=== PATIENT | male | born 1950 | race Caucasian/White ===

== ENCOUNTER 2020-10-28 09:44 | Inpatient (IN) | payer OTHER ==
[~2020-10-28] VITALS: Ht 180.3 cm; Wt 90.3 kg
[2020-10-28 09:46] VITALS: BP 117/90
[2020-10-28] MEDS ORDERED: LISINOPRIL-HCT1 EAC2 PO (09:51)
[2020-10-28] MEDS ORDERED: ATORVASTATIN CA80 MG PO (09:51)
[2020-10-28] MEDS ORDERED: ELIQUIS5 MG PO (09:51)
[2020-10-28 10:12] LABS: ABSOLUTE BASOPHILS 0.1 thou/uL (0.0-0.2); ABSOLUTE EOSINOPHILS 0.1 thou/uL (0.0-0.7); ABSOLUTE MONOCYTES 0.7 thou/uL (0.0-1.2); ABSOLUTE NEUTROPHILS 5.4 thou/uL (1.6-8.1); EOSINOPHILS 1.7 %; HEMATOCRIT 46.2 % (42.0-52.0); HEMOGLOBIN 15.9 gm/dL (14.0-18.0); LYMPHOCYTES 23.9 %; MCH 32.6 pg (26.0-34.0); MCHC 34.4 g/dL (28.0-37.0); MCV 94.9 fL (80.0-100.0); MONOCYTES 8.1 %; MPV 10.4 fl. (7.2-11.1); NUCLEATED RBCS 0 /100WBC; PLATELET COUNT* 193 thou/uL (150-400); POLYS 65.3 %; RBC 4.87 mil/uL (4.50-6.00); RDW-CV 13.2 % (10.5-14.5); WBC 8.3 thou/uL (4.0-11.0)
[2020-10-28 10:25] LABS: CALCIUM 9.1 mg/dL (8.5-10.1); CREATININE 1.7 mg/dL (0.6-1.3)
[2020-10-28 10:35] LABS: ALBUMIN 3.8 g/dL (3.4-5.0); DIRECT BILIRUBIN 0.2 mg/dL (<0.1-0.3); MAGNESIUM 2.1 mg/dL (1.8-2.4); TOTAL BILIRUBIN 0.7 mg/dL (<0.1-1.0); TOTAL PROTEIN 7.1 g/dL (6.4-8.2)
[2020-10-28 10:52] LABS: APTT 30.3 Seconds (25.0-31.3); INR 1.1; PROTIME 11.4 Seconds (9.20-11.50)
[2020-10-28 12:23] LABS: URINE BILIRUBIN NEGATIVE (Negative); URINE BLOOD NEGATIVE (Negative); URINE CLARITY CLEAR; URINE COLOR YELLOW; URINE GLUCOSE-RANDOM NEGATIVE (Negative); URINE KETONES NEGATIVE (Negative); URINE LEUKOCYTES NEGATIVE (Negative); URINE NITRITE NEGATIVE (Negative); URINE PROTEIN NEGATIVE (Negative); URINE UROBILINOGEN 0.2 E.U./dl (0.2-1.0)
[2020-10-28 12:40] LABS: AMP/METHAMP Negative (Negative); BARBITURATES Negative (Negative); BENZODIAZEPINES Negative (Negative); COCAINE Negative (Negative); METHADONE Negative (Negative); OPIATES Negative (Negative); PCP Negative (Negative); THC Negative (Negative)
--- NOTE | 2020-10-28 14:20 | EKG ---
[place] [address] ELECTROCARDIOGRAM REPORT Name: JADE ACOSTA Room: [place] [address] ADM IN [facility]#: [id number] Admission: 10/28/20 Attend Phys: Shiva Ovalle Discharge: Date of : 52 Date of Service: 10/28/20 0947 Report #: [id number] THIS REPORT FOR: //name// 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 10/28/20 1420 0947 0947 Cameron Pedersen MD, [facility] /EPI
--- NOTE | 2020-10-28 14:21 | EKG ---
[place] [address] ELECTROCARDIOGRAM REPORT Name: JADE ACOSTA Room: [place] [address] ADM IN 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 : 1950 Requested By: To Carrera Order Number: [id number] MD: Cameron Pedersen Measurements Intervals [place] Rate: 149 P: ME: QRS: 13 QRSD: 76 T: 14 QT: 287 QTc: 452 Interpretive Statements Atrial fibrillation with rapid V-rate Low voltage, extremity and precordial leads Borderline T abnormalities, inferior leads Compared to ECG 10/28/2020 09:47:19 T-wave abnormality now present Supraventricular tachycardia no longer present Electronically Signed On 10-28-2020 14:20:47 MEDICAL SURGICAL TECH by Cameron Pedersen [email or web address] <ELECTRONICALLY SIGNED> By: Cameron Pedersen MD, [facility] 10/28/20 1420 1020 1020 Cameron Pedersen MD, [facility] /EPI
--- NOTE | 2020-10-28 15:20 | EKG ---
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1950 Requested By: To Carrera Order Number: [id number] Gissel MD: Cameron Pedersen Measurements Intervals [place] Rate: 80 P: 122 WV: 170 QRS: 3 QRSD: 80 T: 22 QT: 371 QTc: 428 Interpretive Statements Sinus rhythm Low voltage, extremity and precordial leads Compared to ECG 10/28/2020 10:20:54 Atrial fibrillation no longer present T-wave abnormality no longer present Electronically Signed On 10-28-2020 15:20:18 LEAD JAVA PROGRAMMER by Cameron Pedersen [email or web address] <ELECTRONICALLY SIGNED> By: Cameron Pedersen MD, [facility] 10/28/20 1520 1052 1052 Cameron Pedersen MD, [facility] /EPI
--- NOTE | 2020-10-28 15:26 | CON ---
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 He has a history of prior supraventricular tachyarrhythmias and is status post multiple prior ablations all done in [place]. He noted a sensation of rapid heartbeat yesterday evening and sought assistance in the [facility] ER today. He was noted to demonstrate SVT with a rapid rate. He initially received adenosine and subsequently Cardizem with reversion to sinus rhythm. He then developed atrial fibrillation and received additional diltiazem IV with return to sinus mechanism. He has been on a number of medications and Tikosyn was considered, but was never initiated within hospital monitoring. We have no history of known structural heart disease. He denies known coronary artery disease, hypertension, diabetes or hyperlipidemia. There is no history of antecedent myocardial infarction. He is taking no cardiac medications at present. PHYSICAL EXAMINATION: GENERAL: Demonstrates a middle-aged male in no acute distress. VITAL SIGNS: Blood pressure 130/70, pulse rate 74, respirations 18 per minute. NECK: Jugular venous pressure is normal. CHEST: Clear. CARDIAC: Reveals normal first and second heart sounds without murmurs or gallops. ABDOMEN: Soft. EXTREMITIES: Without edema. LABORATORY DATA: EKGs were reviewed. Initial tracing revealing SVT. Subsequent tracing revealed atrial fibrillation with a tachycardic response. Third tracing demonstrating sinus rhythm at a normal [place] [id number] CONSULTATION Name: JADE ACOTSA Room: [place] [address] ADM IN [facility]#: [id number] Admission: 10/28/20 Attend Phys: Juwan Whaley Discharge: Date of : 52 Report #: [id number]. IMPRESSION: 1. Recurrent supraventricular arrhythmias including supraventricular tachyarrhythmia and atrial fibrillation. 2. Status post prior ablation. RECOMMENDATIONS: 1. 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 The IV Cardizem seem to achieve satisfactory responses and I would initiate the oral form of diltiazem extended release 240 mg daily. Echocardiogram has been requested or ascertained lack of any significant structural heart disease. After review, I think it is acceptable to discharge the patient with continuing a long-acting diltiazem in followup when he returns home to [place], [place]. Critical care time is 35 minutes from 1300 to 1335 on 10/28/2020. <ELECTRONICALLY SIGNED> By: Cameron Pedersen MD, FACC 10/28/20 1526 1336 1425Cameron Pedersen MD, FACC /nt
[2020-10-28 15:41] VITALS: BP 126/72
--- NOTE | 2020-10-28 15:57 | 2DMMODE ---
[place] [address] 2 D/M-MODE ECHOCARDIOGRAM Name: JADE ACOSTA Room: [place] [address] ADM IN [place].#: [id number] Admission: 10/28/20 Attend Phys: Shiva Ovalle Discharge: Date of : 52 Date of Service: 10/28/20 1557 Report #: [id number] THIS REPORT FOR: cc: [facility] - Clinic physician unknown [facility] - Clinic physician unknown Cameron Pedersen MD [facility] ~ APPROVED REPORT Study performed: 10/28/2020 14:43:12 EXAM: Comprehensive 2D, Doppler, and color-flow Echocardiogram Patient Location: In-Patient Room #: er Status: routine BSA: 2.15 HR: 107 bpm BP: 113/84 mmHg Rhythm: Atrial Fibrillation Other Information Study Quality: Good Indications Abnormal ECG Atrial Fibrillation 2D Dimensions IVSd: 12.42 (7-11mm) LVOT Diam: 22.38 (18-24mm) LVDd: 43.80 mm PWd: 10.74 (7-11mm) Ascending Ao: 33.88 (22-36mm) LVDs: 23.96 (25-40mm) Aortic Root: 36.13 mm Volumes Left Atrial Volume (Systole) LA ESV Index: 24.50 mL/m2 Aortic Valve AoV Peak Franko.: 1.37 m/s AO Peak Gr.: 7.50 mmHg LVOT Max P.95 mmHg AO Mean Gr.: 4.17 mmHg LVOT Mean P.99 mmHg LVOT Max V: 0.70 m/s AO V2 VTI: 20.43 cm LVOT Mean V: 0.46 m/s VANESSA (VTI): 2.25 cm2 LVOT V1 VTI: 11.71 [place] [address] 2 D/M-MODE ECHOCARDIOGRAM Name: JADE ACOSTA Room: [address] IN .R.#: [id number] Admission: 10/28/20 Attend Phys: Shiva Ovalle Discharge: Date of : 52 Date of Service: 10/28/20 1557 Report #: [id number] TDI Medial E' Franko.: 0.11 m/s Lateral E' Franko.: 0.11 m/s Pulmonary Valve PV Peak Franko.: 0.94 m/s PV Peak Gr.: 3.57 mmHg Tricuspid Valve RAP Estimate: 5.00 mmHg TR Peak Gr.: 27.11 mmHg RVSP: 32.00 mmHg PA Pressure: 32.00 mmHg Left Ventricle The left ventricle is normal size. There is normal LV segmental wall motion. There is normal left ventricular wall thickness. Left ventricular systolic function is normal. The left ventricular ejection fraction is within the normal range. LVEF is 55-60%. This study is not technically sufficient to allow evaluation of the LV diastolic function due to atrial fibrillation. Right Ventricle The right ventricle is normal size. The right ventricular systolic function is normal. Atria Left atrium is mildly dilated. The right atrium size is normal. Aortic Valve Mild aortic valve sclerosis. No aortic regurgitation is present. There is no aortic valvular stenosis. Mitral Valve Mild mitral annular calcification. Mild mitral regurgitation. No evidence of mitral valve stenosis. Tricuspid Valve The tricuspid valve is normal in structure. Mild tricuspid regurgitation. Mild pulmonary hypertension. Pulmonic Valve The pulmonary valve is normal in structure. There is no pulmonic valvular regurgitation[place] [address] 2 D/M-MODE ECHOCARDIOGRAM Name: KARLAJADE Room: [address] IN [facility].#: [id number] Admission: 10/28/20 Attend Phys: Shiva Ovalle Discharge: Date of : 52 Date of Service: 10/28/20 1557 Report #: [id number] The aortic root is normal in size. IVC is normal in size and collapses >50% with inspiration. Pericardium There is no pericardial effusion. <Conclusion> The left ventricle is normal size. There is normal left ventricular wall thickness. Left ventricular systolic function is normal. The left ventricular ejection fraction is within the normal range. LVEF is 55-60%. This study is not technically sufficient to allow evaluation of the LV diastolic function due to atrial fibrillation. The right ventricle is normal size. Left atrium is mildly dilated. Mild aortic valve sclerosis. No aortic regurgitation is present. There is no aortic valvular stenosis. Mild mitral annular calcification. Mild mitral regurgitation. The tricuspid valve is normal in structure. Mild tricuspid regurgitation. Mild pulmonary hypertension. IVC is normal in size and collapses >50% with inspiration. There is no pericardial effusion. There is normal LV segmental wall motion. <ELECTRONICALLY SIGNED> By: Cameron Pedersen MD, FACC 10/28/20 1557 1557 1557 Cameron Pedersen MD, FACC /INF
[2020-10-28 16:30] VITALS: BP 105/74
[2020-10-28 16:45] VITALS: BP 115/73
[2020-10-28 16:58] VITALS: BP 109/85
--- NOTE | 2020-10-28 18:55 | NUR ---
ADMIT NSG NOTE A/OX4.GCS=15.FC.BRUNO.GAIT IS STEADY.DENIES PAIN,DISCOMFORT,SOA OR PALPITATIONS. HAD ELEVATED HR IN THE 140'S-160'S WHEN HE ARRIVED FLOOR FROM ED. CARDIZEM BOLUS & GTT ORDERS OBTAINED FROM DR CASTRO AND ALSO CARDIOLOGY MADE AWARE. IMPROVEMENT NOTED AROUND 1800 HRS WHEN HR DROPPED TO LOWER 90'S-110'S. TOLERATES PO. CONTINENT. NO CHANGE IN LOC. COMPLAINED OF BEING UPSET FOR HAVING TO SPEND THE NIGHT AT THE HOSPITAL. WORRIED ABOUT HIS TRUCK LOAD AND TWO DOGS. WILL CONT TO MONITOR.
[2020-10-29] VITALS: BP 110/72
[2020-10-29 04:00] VITALS: BP 97/62
[2020-10-29 04:05] LABS: CALCIUM 8.7 mg/dL (8.5-10.1); CREATININE 1.4 mg/dL (0.6-1.3); POTASSIUM 3.9 mmol/L (3.5-5.1)
[2020-10-29 07:54] VITALS: BP 111/73
--- NOTE | 2020-10-29 09:32 | NUR ---
CM SPOKE TO THE PT TO DISCUSS CM ASSESSMENT. 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 PT USES 0 DME. PT HAS 0 HX OF HH OR SNF. 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 CM WILL REMAIN AVAILABLE TO ASSIST AND FOLLOW NEEDED.
[2020-10-29 12:00] VITALS: BP 103/68
[2020-10-29 16:00] VITALS: BP 117/78
--- NOTE | 2020-10-29 19:25 | NUR ---
RECEIVED REPORT AND ASSUMED CARE OF PATIENT AT 0750. PATIENT IS ALERT AND ORIENTED X 4, PLEASANT, AND ANXIOUS TO BE DISCHARGED. PATIENT IS FROM OUT OF TOWN ([place]) AND WOULD LIKE TO GET BACK TO HIS NORMAL ROUTINE. 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 NO COUGH OR RESPIRATORY DISTRESS. PATIENT IS SCHEDULED FOR DISCHARGE TOMORROW. WILL CONTINUE TO MONITOR.
[2020-10-29 20:00] VITALS: BP 122/76
[2020-10-30] VITALS: BP 114/70
[2020-10-30 08:10] VITALS: BP 108/64
[2020-10-30] MEDS ORDERED: CARDIZEM CD120 MG PO ×2 (08:53→08:54)
[2020-10-30 10:46] VITALS: BP 108/64
--- NOTE | 2020-10-30 11:37 | NUR ---
CM INFORMED DURING PRIME ROUNDING OF THE PLAN OF CARE FOR THE PT. PLAN FOR PT TO D/C HOME TODAY WITH SELF-CARE. NO CM D/C PLANNING NEEDS ANTICIPATED. CM WILL REMAIN AVAILABLE TO ASSIST AND FOLLOW NEEDED.
--- NOTE | 2020-10-30 11:42 | NUR ---
RECEIVED REPORT. ASSUMED CARE. AM ASSESSMENT AND VITALS COMPLETED CHARTED. MEDS PER EMAR. DISCHARGE ORDERS RECEIVED. DISCHARGE COMPLETED DOCUMENTED. PT AWARE TO WIRELINE OPERATOR MED FROM PHARMACY. IV AND PERFORMANCE CONSULTANT REMOVED. ALL BELONGINGS GATHERED AND SENT OUT WITH THE PT. PT LEFT UNIT WITH SECURITY - SECURITY TO DRIVE PT TO [facility] TO GET PRESCRIPTION. PT HAS ARRANGED FOR TRANSPORTATION FROM [facility] TO HIS [address] [employer] TRUCK SO HE CAN GET BACK HOME TO [place]. UNABLE TO PRINT CARDIAC STRIP THIS AM, PT DISCHARGED OUT OF MONITOR LOG PRIOR TO PRINTING A STRIP.
== END 2020-10-30 11:35 | disposition home or self-care (01) | DRG 309 ==
LOC: M.ERS 09:44 → M.TBA-ER 11:06 → M.2W 11:06
PROVIDERS: Emergency Medicine; ADMIT Internal Medicine; ATTEND Internal Medicine
DX: I47.1 Supraventricular tachycardia (principal); N17.9 Acute kidney failure, unspecified; D68.69 Other thrombophilia; E78.5 Hyperlipidemia, unspecified; I12.9 Hypertensive chronic kidney disease with stage 1 through stage 4 chronic kidney disease, or unspecified chronic kidney disease; I48.0 Paroxysmal atrial fibrillation; I48.11 Longstanding persistent atrial fibrillation; E86.0 Dehydration; Z20.822 Contact with and (suspected) exposure to COVID-19; Z86.73 Personal history of transient ischemic attack (TIA), and cerebral infarction without residual deficits; Z79.01 Long term (current) use of anticoagulants; Z79.899 Other long term (current) drug therapy; N18.9 Chronic kidney disease, unspecified